=== PATIENT | male | born 1960 | race African-American/Black ===

== ENCOUNTER 2019-06-24 19:32 | Emergency (ER) | payer BC ==
[~2019-06-24] VITALS: Ht 177.8 cm; Wt 104.3 kg
[2019-06-24] MEDS ORDERED: CLON0.1T PO (19:44)
--- NOTE | 2019-06-24 19:44 | PHYS DOC ---
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 Patient reports he has a history of CLL and is being evaluated to start IgG. Denies any headache. Denies chest pain. Denies nausea/vomiting/diarrhea. Patient reports he is asymptomatic. Reports in the past has had a prescription for rescue clonidine which seemed to work. Review of Systems Review of Systems Constitutional: Denies fever or chills Eyes: Denies redness or eye pain HENT: Denies nasal congestion or sore throat Respiratory: Denies cough or shortness of breath Cardiovascular: Denies chest pain or palpitations GI: Denies abdominal pain, nausea, or vomiting : Denies dysuria or hematuria Musculoskeletal: Denies back pain or joint pain Integument: Denies rash or skin lesions Neurologic: Denies headache, focal weakness or sensory changes Complete systems were reviewed and found to be within normal limits, except as documented in this note. Current Medications Current Medications Current Medications Medications (Trade) Dose Ordered Sig/Marifer Start Time Stop Time Status Last Admin Dose Admin Clonidine HCl (Catapres) 0.1 mg 1X ONCE 06/24/19 19:45 06/24/19 19:50 DC Allergies Allergies Allergies Coded Allergies Type Severity Reaction Last Updated Verified ciprofloxacin Allergy Unknown 06/24/19 Yes iodine Allergy Unknown 06/24/19 Yes Physical Exam Physical Exam Constitutional: Well developed, well nourished, no acute distress, non-toxic appearance HENT: Normocephalic, atraumatic, oropharynx moist Eyes: Conjunctiva normal, no discharge Neck: Normal range of motion, no tenderness, supple Cardiovascular: Heart rate normal, regular rhythm Lungs & Thorax: Bilateral breath sounds clear to auscultation, no wheezing Abdomen: Soft, no tenderness Skin: Warm, dry, no erythema, no rash Extremities: No tenderness, ROM intact, no edema Neurologic: Alert and oriented X 3, no focal deficits noted Psychologic: Affect normal, judgement normal EKG EKG [] Radiology/Procedures Radiology/Procedures [] Course & Med Decision Making Course & Med Decision Making Patient presents with report of elevated blood pressure despite taking extra dose of his home medication. Patient reports he is asymptomatic. Reports has had a prior prescription for rescue clonidine which seemed to work. Patient requesting to have a dose now and a prescription as needed. Patient neurologic intact. Denies chest pain. Blood pressure addressed with abiodun desai. Prescription given for home. Patient stable for discharge with outpatient follow-up with PCP. Discussed findings and plan with patient, who acknowledges understanding and agreement. Dragon Disclaimer Dragon Disclaimer This electronic medical record was generated, in whole or in part, using a voice recognition dictation system. Departure Departure Impression: Primary Impression: Accelerated hypertension Disposition: HOME, SELF-CARE Condition: STABLE Referrals: UNKNOWN PCP NAME (PCP) Patient Instructions: Hypertension, Wqml-yn-Snms Scripts Clonidine Hcl (CLONIDINE HCL) 0.1 Mg Tablet 0.1 MG PO BID PRN for ELEVATED BP, SEE COMMENTS, #30 TAB Take for systolic blood pressure > 180 and/or diastolic blood pressure > 105. Prov: DINA JOHNSON DO 06/24/19 DINA JOHNSON DO Jun 24, 2019 19:44
[2019-06-24] MEDS ORDERED: cloNIDine HCL 0.1 MG TABLET PO ONE (19:45)
[2019-06-24 19:50] VITALS: BP 215/98
== END 2019-06-24 19:55 | disposition home or self-care (01) ==
LOC: ER 19:32
DX: I10 Essential (primary) hypertension (principal); Z85.6 Personal history of leukemia; Z88.1 Allergy status to other antibiotic agents; Z88.8 Allergy status to other drugs, medicaments and biological substances
CPT/HCPCS: 99283

== ENCOUNTER → 2019-08-22 | Day surgery (SDC) | payer BC ==
[~2019-08-22] MED LIST: AMLO5TAB10 PO; ASPI-612 PO; CLON0.1T PO; HEPARIN PF 500 UNIT/5 ML DISP.SYRIN. IVP ONE; IBRU140C PO; IBUP-1060 PO; IV RINGERS,LACTATED 1000ML 1,000 ML IV SCH; LIDOCAINE 2% PF 5 ML VIAL. ONE; LORA0.5T96 PO; LOSA1TAB22 PO; MULT-121 PO; OMEG-117 PO; PROPOFOL 40 ML IV ONE
[2019-08-22 13:43] VITALS: BP 126/54
--- NOTE | 2019-08-22 23:20 | CONS ---
DATE OF CONSULTATION: 08/22/2019 GASTROENTEROLOGY CONSULTATION REFERRING PHYSICIAN: Vikram Meeks MD REASON FOR CONSULTATION: Colorectal screening. HISTORY OF PRESENT ILLNESS: A 58-year-old -[place] male with a past medical history that is significant for CLL as well as hypertension is seen for colonoscopy exam. Bowel habits are regular without diarrhea or constipation with no melena and/or hematochezia. Weight and appetite are stable. Family history is unrevealing for colon polyps or colon cancer. He is otherwise without additional complaints. PAST MEDICAL HISTORY: Hypertension, CLL. ALLERGIES: IODINE, CIPRO. MEDICATIONS: Include amlodipine, clonidine, aspirin, ibrutinib, ibuprofen, lorazepam, losartan, and multivitamin. FAMILY AND SOCIAL HISTORY: Significant for high blood pressure in multiple family members. He is a nonsmoker and nondrinker. REVIEW OF SYSTEMS: HEENT: There is no decrease in visual acuity issues. CARDIAC: History of hypertension. HEMATOLOGIC: History of CLL. PULMONARY: No shortness breath, productive cough, or asthma. RENAL: No dysuria, frequency, or hematuria. NEUROLOGIC: No stroke or migraine. PSYCHIATRIC: No mood swings, depression or anxiety. DERMATOLOGIC: No skin rashes or pruritus. MUSCULOSKELETAL: No osteoarthrosis, arthralgias, or myalgias. PHYSICAL EXAMINATION: GENERAL: Reveals a well-nourished, well-developed male who is alert, cooperative, in no acute distress. VITAL SIGNS: Temperature is 98.2, pulse 69, respiratory rate 18. HEENT: Exam reveals normocephalic, atraumatic head. Pupils and extraocular muscles are not tested. Sclerae are anicteric. NECK: Supple. LUNGS: Clear. CARDIOVASCULAR: Reveals an S1, S2 without S3, S4 or appreciable murmur. ABDOMEN: With a soft abdomen, normal bowel sounds, without appreciable hepatosplenomegaly. EXTREMITIES: Reveals no cyanosis, clubbing or edema. IMPRESSION: Colorectal screening is warranted at this time. Risks and benefits of procedure including risk of hemorrhage and perforation during the operation have been discussed. The patient is willing to proceed. I would like to thank Dr. Meeks for allowing us to consult and participate in this patient's care. ANTONIO AMADO MD DR: DANDY/boyd JOB#: [id number] / [id number] VIKRAM Trejo MD
--- NOTE | 2019-08-23 22:06 | PATHOLOGY ---
[facility] Accession Number: [id number] . 01 Material submitted: . colon - SIGMOID POLYP. Modifiers: sigmoid . 01 Clinical history: . Screening . 02 Diagnosis: "Sigmoid polyp", biopsy: - Hyperplastic polyp. (CLW:urszula; 08/23/2019) MBR 08/23/2019 1006 Local . 02 Electronically signed: . Cindy Zhang MD, Pathologist NPI- [id number] . 01 Gross description: . Received in formalin labeled "[place], sigmoid polyp," is a single segment of camara soft tissue measuring 0.5 cm in maximum dimension. The specimen is entirely submitted in cassette A1. (TSD; 08/22/2019) TOB/TOB 08/22/2019 1808 Local . 02 Pathologist provided ICD-10: K63.5 . 02 CPT . 235029 Specimen Comment: A courtesy copy of this report has been sent to [phone] Specimen Comment: [id number] Specimen Comment: Report sent to / DR MUÑOZ Performed at: 01 [facility] [address], [place] [id number] MD Fuad Roy MD Phone: [phone] Performed at: 02 [facility] [address] [place], [place] [id number] MD Kunal Enriquez MD Phone: [phone]
== END ==
LOC: ENDOS 12:00
PROVIDERS: ATTEND Internal Medicine Gastroenterology
DX: Z12.11 Encounter for screening for malignant neoplasm of colon (principal); K63.5 Polyp of colon; K64.0 First degree hemorrhoids; K57.30 Diverticulosis of large intestine without perforation or abscess without bleeding; I10 Essential (primary) hypertension; C91.10 Chronic lymphocytic leukemia of B-cell type not having achieved remission; Z88.8 Allergy status to other drugs, medicaments and biological substances; Z91.041 Radiographic dye allergy status; E66.9 Obesity, unspecified; Z68.34 Body mass index [BMI] 34.0-34.9, adult; Z98.52 Vasectomy status
CPT/HCPCS: 45380; J2001; J2704; 88305

== ENCOUNTER 2019-08-29 07:50 | Day surgery (SDC) | payer BC ==
[~2019-08-29] VITALS: Ht 177.8 cm; Wt 104.3 kg
[~2019-08-29 07:50] MED LIST changes: -HEPARIN PF 500 UNIT/5 ML DISP.SYRIN. IVP ONE; +HYDROmorphone 2 MG/ML VIAL IV PRN; +LIDOCAINE 1% PF 2 ML VIAL. ID PRN; -LIDOCAINE 2% PF 5 ML VIAL. ONE; +MORPHINE SULFATE 2 MG/ML VIAL. IV PRN; +ONDANSETRON PF 4 MG/2 ML VIAL. IV PRN; +PROCHLORPERAZINE 10 MG/2 ML VIAL. IV PRN; -PROPOFOL 40 ML IV ONE; +fentaNYL PF VIAL 100 MCG/2 ML VIAL IV PRN
[2019-08-29] MEDS ORDERED: BUPIVACAINE-EPI 0.5%-1:200000 MPF 30 ML VIAL. INJ ONE (08:00)
[2019-08-29 08:25] LABS: BASO # 0.1 x10^3/uL (0.0-0.2); BASO % 2 % (0-3); EOS % 1 % (0-3); HEMATOCRIT 38.6 % (39.0-53.0); LYMPH # 1.2 x10^3/uL (1.0-4.8); LYMPH % 31 % (24-48); MEAN CORPUSCULAR HEMOGLOBIN 32 pg (25-35); MEAN CORPUSCULAR HGB CONC 34 g/dL (31-37); MEAN CORPUSCULAR VOLUME 96 fL (79-100); MONO # 0.4 x10^3/uL (0.0-1.1); MONO % 12 % (0-9); NEUT # 2.1 x10^3/uL (1.8-7.7); NEUT % 55 % (31-73); PLATELET COUNT 243 x10^3/uL (140-400); RED BLOOD COUNT 4.04 x10^6/uL (4.30-5.70); RED CELL DISTRIBUTION WIDTH 13.7 % (11.5-14.5); WHITE BLOOD COUNT 3.9 x10^3/uL (4.0-11.0)
[2019-08-29 08:41] LABS: CALCIUM 8.8 mg/dL (8.5-10.1); CREATININE 1.3 mg/dL (0.7-1.3); GFR 68.1; POTASSIUM 3.9 mmol/L (3.5-5.1)
[2019-08-29 08:48] LABS: ALBUMIN 3.4 g/dL (3.4-5.0); ALBUMIN/GLOBULIN RATIO 0.9 (1.0-1.7); TOTAL BILIRUBIN 0.3 mg/dL (0.2-1.0); TOTAL PROTEIN 7.3 g/dL (6.4-8.2)
[2019-08-29 08:53] LABS: PROTHROMBIN TIME PATIENT 12.6 SEC (11.7-14.0)
--- NOTE | 2019-08-29 09:02 | PDOC ---
SURGICAL PROGRESS NOTE Subjective Op Note: surgeon..............................................Jose Francisco Pre op diag.......................................Incarcerated umbilical hernia Post op diag.....................................same Anesthesia.......................................general Procedure........................................repair incarcerated umbilical hernia Blood loss........................................10cc Fluids...............................................see anesthesia sheet Drains.............................................none condition.........................................satisfactory Vital Signs Vital Signs Date Time Temp Pulse Resp B/P (MAP) Pulse Ox O2 Delivery O2 Flow Rate FiO2 08/29/19 08:06 98.5 66 20 143/79 98 Room Air 98.5 Labs Laboratory Tests Test 08/29/19 08:14 White Blood Count 3.9 x10^3/uL (4.0-11.0) Red Blood Count 4.04 x10^6/uL (4.30-5.70) Hemoglobin 13.0 g/dL (13.0-17.5) Hematocrit 38.6 % (39.0-53.0) Mean Corpuscular Volume 96 fL (79-100) Mean Corpuscular Hemoglobin 32 pg (25-35) Mean Corpuscular Hemoglobin Concent 34 g/dL (31-37) Red Cell Distribution Width 13.7 % (11.5-14.5) Platelet Count 243 x10^3/uL (140-400) Neutrophils (%) (Auto) 55 % (31-73) Lymphocytes (%) (Auto) 31 % (24-48) Monocytes (%) (Auto) 12 % (0-9) Eosinophils (%) (Auto) 1 % (0-3) Basophils (%) (Auto) 2 % (0-3) Neutrophils # (Auto) 2.1 x10^3/uL (1.8-7.7) Lymphocytes # (Auto) 1.2 x10^3/uL (1.0-4.8) Monocytes # (Auto) 0.4 x10^3/uL (0.0-1.1) Eosinophils # (Auto) 0.0 x10^3/uL (0.0-0.7) Basophils # (Auto) 0.1 x10^3/uL (0.0-0.2) Prothrombin Time 12.6 SEC (11.7-14.0) Prothromb Time International Ratio 1.0 (0.8-1.1) Activated Partial Thromboplast Time 63 SEC (24-38) Sodium Level 144 mmol/L (136-145) Potassium Level 3.9 mmol/L (3.5-5.1) Chloride Level 110 mmol/L (98-107) Carbon Dioxide Level 24 mmol/L (21-32) Anion Gap 10 (6-14) Blood Urea Nitrogen 23 mg/dL (8-26) Creatinine 1.3 mg/dL (0.7-1.3) Estimated GFR (Cockcroft-Gault) 68.1 BUN/Creatinine Ratio 18 (6-20) Glucose Level 96 mg/dL (70-99) Calcium Level 8.8 mg/dL (8.5-10.1) Total Bilirubin 0.3 mg/dL (0.2-1.0) Aspartate Amino Transf (AST/SGOT) 16 U/L (15-37) Alanine Aminotransferase (ALT/SGPT) 16 U/L (16-63) Alkaline Phosphatase 28 U/L (46-116) Total Protein 7.3 g/dL (6.4-8.2) Albumin 3.4 g/dL (3.4-5.0) Albumin/Globulin Ratio 0.9 (1.0-1.7) Laboratory Tests Test 08/29/19 08:14 White Blood Count 3.9 x10^3/uL (4.0-11.0) Red Blood Count 4.04 x10^6/uL (4.30-5.70) Hemoglobin 13.0 g/dL (13.0-17.5) Hematocrit 38.6 % (39.0-53.0) Mean Corpuscular Volume 96 fL (79-100) Mean Corpuscular Hemoglobin 32 pg (25-35) Mean Corpuscular Hemoglobin Concent 34 g/dL (31-37) Red Cell Distribution Width 13.7 % (11.5-14.5) Platelet Count 243 x10^3/uL (140-400) Neutrophils (%) (Auto) 55 % (31-73) Lymphocytes (%) (Auto) 31 % (24-48) Monocytes (%) (Auto) 12 % (0-9) Eosinophils (%) (Auto) 1 % (0-3) Basophils (%) (Auto) 2 % (0-3) Neutrophils # (Auto) 2.1 x10^3/uL (1.8-7.7) Lymphocytes # (Auto) 1.2 x10^3/uL (1.0-4.8) Monocytes # (Auto) 0.4 x10^3/uL (0.0-1.1) Eosinophils # (Auto) 0.0 x10^3/uL (0.0-0.7) Basophils # (Auto) 0.1 x10^3/uL (0.0-0.2) Prothrombin Time 12.6 SEC (11.7-14.0) Prothromb Time International Ratio 1.0 (0.8-1.1) Activated Partial Thromboplast Time 63 SEC (24-38) Sodium Level 144 mmol/L (136-145) Potassium Level 3.9 mmol/L (3.5-5.1) Chloride Level 110 mmol/L (98-107) Carbon Dioxide Level 24 mmol/L (21-32) Anion Gap 10 (6-14) Blood Urea Nitrogen 23 mg/dL (8-26) Creatinine 1.3 mg/dL (0.7-1.3) Estimated GFR (Cockcroft-Gault) 68.1 BUN/Creatinine Ratio 18 (6-20) Glucose Level 96 mg/dL (70-99) Calcium Level 8.8 mg/dL (8.5-10.1) Total Bilirubin 0.3 mg/dL (0.2-1.0) Aspartate Amino Transf (AST/SGOT) 16 U/L (15-37) Alanine Aminotransferase (ALT/SGPT) 16 U/L (16-63) Alkaline Phosphatase 28 U/L (46-116) Total Protein 7.3 g/dL (6.4-8.2) Albumin 3.4 g/dL (3.4-5.0) Albumin/Globulin Ratio 0.9 (1.0-1.7) JANNY SHARMA MD Aug 29, 2019 09:02
[2019-08-29] MEDS ORDERED: ROCURONIUM 50 MG/5 ML VIAL. ONE (09:06)
[2019-08-29] MEDS ORDERED: MIDAZOLAM HCL/PF 2 MG/2 ML VIAL. ONE (09:06)
[2019-08-29] MEDS ORDERED: fentaNYL PF VIAL 250 MCG/5 ML VIAL ONE (09:07)
[2019-08-29] MEDS ORDERED: ePHEDrine PF IN SALINE 50 MG/10 ML SYRINGE. IV ONE (09:45)
[2019-08-29] MEDS ORDERED: PHENYLEPHRINE in 0.9% NACL PF 1 MG/10 ML SYRINGE. IV ONE (09:45)
[2019-08-29] MEDS ORDERED: ONDANSETRON PF 4 MG/2 ML VIAL. ONE (09:45)
[2019-08-29] MEDS ORDERED: PROPOFOL 20 ML IV ONE (09:45)
[2019-08-29] MEDS ORDERED: SEVOFLURANE 61 TO 120 MINUTES. IH ONE (09:45)
[2019-08-29] MEDS ORDERED: LIDOCAINE 2% PF 5 ML VIAL. ONE (09:45)
[2019-08-29] MEDS ORDERED: DEXAMETHASONE SOD PHOS 4 MG/ML VIAL ONE (09:45)
--- NOTE | 2019-08-29 09:46 | HP ---
ADMIT DATE: 08/29/2019 HISTORY OF PRESENT ILLNESS: The patient has had an umbilical mass, which is increasing in size and getting some pain and tenderness more lately. He has never had this before. PAST MEDICAL HISTORY: Shows he does have chronic lymphocytic leukemia, has been treated on and off for that. HE HAS REPORTED HE IS ALSO ALLERGIC TO CIPRO. No abdominal surgery that he is aware of and he is doing otherwise well. He does have hypertension for which he has been treated, but no other abnormalities. He had colonoscopy 1 or 2 days ago and it was unremarkable. SOCIAL HISTORY: Shows that he drinks socially, but does not use illicit drugs and does not smoke. FAMILY HISTORY: Noncontributory. REVIEW OF SYSTEMS: Negative except for this umbilical pain on and off and increasing mass there. PHYSICAL EXAMINATION: GENERAL: Shows an alert male, in no acute distress. HEAD, EYES, EARS, NOSE AND THROAT: Grossly normal. CHEST: Clear bilaterally to auscultation. HEART: Had no murmurs, heaves, friction rubs or thrills and had a rate of 70 beats per minute and it was regular. ABDOMEN: Soft, did have a nonreducible mass at the umbilicus, it was somewhat tender, but would not diane. RECTAL: Not done. EXTREMITIES: Grossly normal. IMPRESSION: 1. Chronic lymphocytic leukemia. 2. Incarcerated umbilical hernia. 3. Hypertension. JANNY SHARMA MD DR: LORE/boyd JOB#: [id number] / [id number]
[2019-08-29] MEDS ORDERED: ceFAZolin SODIUM 1 GM VIAL ONE (10:20)
[2019-08-29] MEDS ORDERED: GLYCOPYRROLATE 1 MG/5 ML VIAL. ONE (10:35)
[2019-08-29] MEDS ORDERED: NEOSTIGMINE METHYLSULFATE 5 MG/5 ML SYRINGE. ONE (10:35)
--- NOTE | 2019-08-29 11:04 | DISCH ---
DISCHARGE INSTRUCTIONS Condition on Discharge Condition on Discharge: Stable Activity After Discharge Activity Instructions for Disc: Avoid exertion Lifting Instructions after Dis: No heavy lifting, No pulling or pushing, Do not lift >10 pounds Driving Instructions after Dis: Do not drive today Weight Bearing Status after Di: As tolerated Diet after Discharge Diet after Discharge: Clear Liquid Wound Incision Care Wound/Incision Care: Do not change dressing Follow-Up Follow up with: Dr Sharma 2 weeks..[phone] JANNY SHARMA MD Aug 29, 2019 11:04
[2019-08-29] MEDS ORDERED: HYDROcodone/APAP 7.5/325MG 1 TAB TABLET PO ONE (12:00)
[2019-08-29] MEDS ORDERED: HEPARIN PF 500 UNIT/5 ML DISP.SYRIN. ONE (12:24)
[2019-08-29 12:25] VITALS: BP 130/74
[2019-08-29] MEDS ORDERED: HEPARIN PF 500 UNIT/5 ML DISP.SYRIN. IVP ONE (12:30)
--- NOTE | 2019-08-30 00:57 | OP ---
DATE OF SURGERY: SURGEON: Luis F Sharma MD PREOPERATIVE DIAGNOSIS: Abdominal wall hernia. POSTOPERATIVE DIAGNOSIS: Umbilical hernia, incarcerated. ANESTHESIA: General. PROCEDURE: Repair of incarcerated umbilical hernia. TECHNIQUE: Under general anesthesia, the patient was properly prepped and draped in routine fashion. An incision was made in the supraumbilical area in a transverse fashion following the skin lines in a curved fashion with a 15 blade and went through the skin through the subcu. We then used rake retractors both cephalad and caudad directions and identified the sac, which was attached to the umbilicus. We slowly using a 15 blade, cut the sac away from underside of the umbilicus. We entered the sac and could feel the fascia. We made certain that we got back to the fascial edges around the hernia. Inside of the sac there was fat, which was adherent to the sac wall. This was cut away using Metzenbaum scissors and also finger dissection to free it up from the underlying tissues. We then passed a Bard disk for hernia repair about a 4 inch, we went into the umbilicus with Seprafilm on the inside face and the inside of the abdominal cavity. We pulled this up with a tap and then placed four #1 Prolene sutures into the fascia and taking the tab and it was attached to the disk. We did 4 of these cut to tag off and then made certain that the disk was lying flat against the anterior abdominal wall and then tied these. A 0.5% Marcaine and epinephrine was used to anesthetize the area around the fascial edges and there was good tight closure of the hernia. A 4-0 Vicryl was used to suture the umbilicus down to the fascia and then other 4-0's were used to bury the knots in the subcutaneous. The wound had been washed with saline and now we were ready to close the subcu and deep dermis with interrupted 4-0 Vicryl and then closed the skin using a subcuticular 5-0 Vicryl. The procedure was terminated as sterile Tegaderm dressing was applied. The blood loss was about 10 mL. Fluids given can be obtained from the anesthesia sheet. No drains were used. CONDITION OF THE PATIENT: Satisfactory as he has returned to the recovery room. LUIS F SHARMA MD DR: LORE/boyd JOB#: [id number] / [id number]
== END 2019-08-29 15:50 | disposition home or self-care (01) ==
LOC: SURG 07:50 → EEVIPCON 09:00 → SURG 15:50
PROVIDERS: ATTEND Specialist
DX: K42.0 Umbilical hernia with obstruction, without gangrene (principal); C91.10 Chronic lymphocytic leukemia of B-cell type not having achieved remission; I10 Essential (primary) hypertension; Z79.899 Other long term (current) drug therapy; Z79.01 Long term (current) use of anticoagulants; Z72.89 Other problems related to lifestyle
CPT/HCPCS: 36415; 49587; 80053; 85025; 85610; 85730; A7015; C1781; J0171; J0690; J1100; J2001; J2250; J2370; J2405; J2704; J2710; J3010; J3490; J7120